=== PATIENT | male | born 1965 | race Caucasian/White ===

== ENCOUNTER 2017-07-28 10:11 | Emergency (ER) | payer OTHER ==
[~2017-07-28] VITALS: Ht 172.7 cm; Wt 81.3 kg
[~2017-07-28 10:11] MED LIST: GABA300C5 PO; IBUP800T23 PO; METH500T3 PO; Z.0.NO CURRENT MEDS
[2017-07-28 10:31] VITALS: BP 123/76; PULSE 68; RESP 16; TEMP 98.4; O2SAT 98
--- NOTE | 2017-07-28 11:10 | PD ---
HPI Chief Complaint: Pain: Acute or Chronic Time Seen by Provider: 10:46 Travel History International Travel<30 days: No Contact w/Intl Traveler<30days: No Traveled to known affect area: No History of Present Illness HPI 52-year-old male presents to the ED for evaluation of 710 left upper thigh pain. Onset this morning upon getting out of bed. Worsened by moving the leg, weightbearing. Patient can recall no acute injury or recent overuse. He denies fever, chills, nausea, vomiting, changes in bowel habits, numbness, tingling, weakness, limitations to range of motion of the extremity. No treatment attempt at home. PFSH Past Medical History Cardiac Catheterization: Yes Cardiovascular Problems: Yes Coronary Artery Disease: Yes Diabetes: No Patient Takes Glucophage: No Diminished Hearing: No Kidney Stones: Yes Neurologic: Yes (BRAIN SURGERY) Psychiatric: No Immunizations Current: No Past Surgical History Cardiac Surgery: Yes (September TO CORRECT A ANOMOLY) Coronary Artery Bypass Graft: Yes (CABG X 2-) Other Surgery: Yes ("brain surgery,20yrs ago,removed dermoid cyst from behind r.eye") Family History Family Myocardial Infarction: Yes Social History Alcohol Use: Yes (WINE ON OCCASION) Tobacco Use: No Substance Use: No Allergies-Medications (Allergen,Severity, Reaction): Coded Allergies: diatrizoate meglumine (Unverified Allergy, Severe, Respiratory Failure, 06/02) gadobenic acid (Unverified Allergy, Severe, Respiratory Failure, 07/28/17) gadodiamide (Unverified Allergy, Severe, Respiratory Failure, 07/28/17) gadoteridol (Unverified Allergy, Severe, Respiratory Failure, 07/28/17) iodixanol (Unverified Allergy, Severe, Respiratory Failure, 07/28/17) iohexol (Unverified Allergy, Severe, Respiratory Failure, 07/28/17) fentanyl (Unverified Adverse Reaction, Severe, "vomiting,dizzy, hallucinations", 07/28/17) Reported Meds & Prescriptions Reported Meds & Active Scripts Active Flexeril (Cyclobenzaprine HCl) 10 Mg Tab 10 Mg PO TID Naprosyn (Naproxen) 500 Mg Tab 500 Mg PO BID Physical Exam Narrative GENERAL: Well-nourished, well-developed white male in no acute distress. Patient. SKIN: Focused skin assessment warm/dry. HEAD: Normocephalic. EYES: No scleral icterus. No injection or drainage. NECK: Supple, trachea midline. No JVD or lymphadenopathy. CARDIOVASCULAR: Regular rate and rhythm without murmurs, gallops, or rubs. RESPIRATORY: Breath sounds equal bilaterally. No accessory muscle use. GASTROINTESTINAL: Abdomen soft, non-tender, nondistended. No palpable bulging of the groin. MUSCULOSKELETAL: No cyanosis, or edema. No tenderness to palpation along the body of the muscles of the left side. Pain in the leg elicited with resisted ROM. BACK: Nontender without obvious deformity. No CVA tenderness. Data Data Last Documented VS Vital Signs Date Time Temp Pulse Resp B/P (MAP) Pulse Ox O2 Delivery O2 Flow Rate FiO2 07/28/17 10:31 98.4 68 16 123/76 (92) 98 Orders Orders Ed Discharge Order (07/28/17 11:11) MDM Medical Decision Making Medical Screen Exam Complete: Yes Emergency Medical Condition: Yes Differential Diagnosis Muscle strain versus inguinal hernia versus femoral hernia versus other Narrative Course 52-year-old male presents to the ED for evaluation of 7/10 left upper thigh pain. Onset this morning upon getting out of bed. He denies fever, chills, nausea, vomiting, changes in bowel habits, numbness, tingling, weakness, limitations to range of motion of the extremity. Vitals reviewed. Physical exam reveals tenderness to palpation of the muscles of the anterior thigh, worsened by resisted ROM. We'll trial a short course of anti-inflammatories and muscle relaxants. Patient is instructed to follow up with the primary care should symptoms persist. He is stable and discharged home. Diagnosis Primary Impression: Muscle strain of left thigh Qualified Codes: S76.912A - Strain of unspecified muscles, fascia and tendons at thigh level, left thigh, initial encounter Referrals: Primary Care Physician Patient Instructions: General Instructions, Muscle Strain (ED) Additional Instructions: Rest, ice, elevate the extremity. Apply ice no longer than 10-15 minutes per hour a few times a day. 500 mg naproxen twice a day as prescribed to reduce inflammation. Muscle relaxants as prescribed, to 3 times a day. To not drive or taking muscle relaxants. Return to normal, gentle activity as tolerated. No running, jumping activities for the next few weeks. Follow up with the primary care provider. Return to the ED for any urgent or emergent medical condition. Med/Other Pt SpecificInfo: Prescription(s) given Scripts Cyclobenzaprine (Flexeril) 10 Mg Tab 10 MG PO TID for Muscle Spasm, #15 TAB 0 Refills Prov: Mindi Ventura MD 07/28/17 Naproxen (Naprosyn) 500 Mg Tab 500 MG PO BID, #10 TAB 0 Refills Prov: Mindi Ventura MD 07/28/17 Disposition: 01 DISCHARGE HOME Condition: Stable Indigo Cordova Jul 28, 2017 11:10
[2017-07-28] MEDS ORDERED: NAPR500 PO (11:11)
[2017-07-28] MEDS ORDERED: CYCL10TA PO (11:11)
== END 2017-07-28 11:16 | disposition home or self-care (01) ==
LOC: PHEFT 10:11
DX: S76.912A Strain of unspecified muscles, fascia and tendons at thigh level, left thigh, initial encounter (principal); Z86.79 Personal history of other diseases of the circulatory system; Z87.442 Personal history of urinary calculi; Z86.69 Personal history of other diseases of the nervous system and sense organs; X58.XXXA Exposure to other specified factors, initial encounter
CPT/HCPCS: 99283

== ENCOUNTER 2017-07-30 12:09 | Emergency (ER) | payer OTHER ==
[~2017-07-30] VITALS: Ht 152.4 cm; Wt 80.7 kg
[~2017-07-30 12:09] MED LIST changes: +CYCL10TA PO; -GABA300C5 PO; -IBUP800T23 PO; -METH500T3 PO; +NAPR500 PO; -Z.0.NO CURRENT MEDS
[2017-07-30 12:17] VITALS: BP 139/91; PULSE 79; RESP 16; TEMP 97.6; O2SAT 99
[2017-07-30] MEDS ORDERED: MORPHINE SULFATE 4 MG/ML INJ IV PUSH ONE (12:45)
[2017-07-30] MEDS ORDERED: SODIUM CHLORID 0.9% 500 ML INJ 500 ML IV ONE (12:45)
--- NOTE | 2017-07-30 13:15 | PD ---
HPI Chief Complaint: Musculoskeletal Complaint Time Seen by Provider: 12:22 Travel History International Travel<30 days: No Contact w/Intl Traveler<30days: No Traveled to known affect area: No History of Present Illness HPI Patient is a 52-year-old male who comes in complaining of left thigh pain. He says he has had the pain since Friday. He was seen here Friday, told he had a muscle strain. He says he is tried taking the naproxen and Flexeril without relief of his symptoms. He says the pain seems to be getting worse, and now travels to his knee, so he came back in. He denies any injury. He says he has not seen any swelling or discoloration of his skin. He denies any back pain or urinary symptoms. Nothing seems to relieve his pain or make it worse. He denies chest pain or shortness of breath. Severity is mild to moderate. PFSH Past Medical History Cardiac Catheterization: Yes Cardiovascular Problems: Yes Coronary Artery Disease: Yes Diabetes: No Diminished Hearing: No Kidney Stones: Yes Neurologic: Yes (BRAIN SURGERY) Psychiatric: No Immunizations Current: No Influenza Vaccination: No ?: Not Past Surgical History Cardiac Surgery: Yes (September TO CORRECT A ANOMOLY) Coronary Artery Bypass Graft: Yes (CABG X 2-) Other Surgery: Yes ("brain surgery,20yrs ago,removed dermoid cyst from behind r.eye") Family History Family Myocardial Infarction: Yes Social History Alcohol Use: Yes (WINE ON OCCASION) Tobacco Use: No Substance Use: No Allergies-Medications (Allergen,Severity, Reaction): Coded Allergies: diatrizoate meglumine (Unverified Allergy, Severe, Respiratory Failure, ) gadobenic acid (Unverified Allergy, Severe, Respiratory Failure, 07/30/17) gadodiamide (Unverified Allergy, Severe, Respiratory Failure, 07/30/17) gadoteridol (Unverified Allergy, Severe, Respiratory Failure, 07/30/17) iodixanol (Unverified Allergy, Severe, Respiratory Failure, 07/30/17) iohexol (Unverified Allergy, Severe, Respiratory Failure, 07/30/17) fentanyl (Unverified Adverse Reaction, Severe, "vomiting,dizzy, hallucinations", 2/14/18) Reported Meds & Prescriptions Reported Meds & Active Scripts Active Flexeril (Cyclobenzaprine HCl) 10 Mg Tab 10 Mg PO TID Naprosyn (Naproxen) 500 Mg Tab 500 Mg PO BID Review of Systems Except as stated in HPI: all other systems reviewed are Neg General / Constitutional: No: Fever, Chills HENT: No: Headaches, Lightheadedness Cardiovascular: No: Chest Pain or Discomfort Respiratory: No: Shortness of Breath Gastrointestinal: No: Nausea, Vomiting Genitourinary: No: Dysuria, Flank Pain Musculoskeletal: Positive: Myalgias, No: Edema Skin: No Rash, No Change in Pigmentation Neurologic: No: Weakness, Dizziness Physical Exam Narrative GENERAL: Awake and alert, no acute distress. SKIN: Focused skin assessment warm/dry. No wounds or signs of infection. HEAD: Atraumatic. Normocephalic. EYES: Pupils equal and round. No scleral icterus. ENT: Mucous membranes pink and moist. NECK: Trachea midline. No JVD. CARDIOVASCULAR: Regular rate and rhythm. No murmur appreciated. RESPIRATORY: No accessory muscle use. Clear to auscultation. Breath sounds equal bilaterally. GASTROINTESTINAL: Abdomen soft, non-tender, nondistended. No groin swelling or evidence of hernia. MUSCULOSKELETAL: No obvious deformities. No clubbing. No cyanosis. No edema. No tenderness to the thoracic or lumbar spine. No tenderness to the sacroiliac area. Some pain with internal rotation of the left hip. Pedal pulses intact. Joint is not warm or red. NEUROLOGICAL: Awake and alert. No obvious cranial nerve deficits. Motor grossly within normal limits. Normal speech. PSYCHIATRIC: Appropriate mood and affect; insight and judgment normal. Data Data Last Documented VS Vital Signs Date Time Temp Pulse Resp B/P (MAP) Pulse Ox O2 Delivery O2 Flow Rate FiO2 07/30/17 12:17 97.6 79 16 139/91 (107) 99 Orders Orders Iv Access Insert/Monitor (07/30/17 12:40) Complete Blood Count With Diff (07/30/17 12:40) Comprehensive Metabolic Panel (07/30/17 12:40) Urinalysis - C+S If Indicated (07/30/17 12:40) Us Leg Venous Doppler (07/30/17 ) Creatine Kinase (Cpk) (07/30/17 12:40) Ct Lumb Spine W/O Contrast (07/30/17 ) Morphine Inj (Morphine Inj) (07/30/17 12:45) Sodium Chlorid 0.9% 500 Ml Inj (Ns 500 M (07/30/17 12:45) Ct Pelvis W/O Iv Contrast (07/30/17 ) Labs Laboratory Tests Test 07/30/17 13:05 07/30/17 14:25 White Blood Count 5.3 TH/MM3 Red Blood Count 5.40 MIL/MM3 Hemoglobin 16.3 GM/DL Hematocrit 48.5 % Mean Corpuscular Volume 89.8 FL Mean Corpuscular Hemoglobin 30.1 PG Mean Corpuscular Hemoglobin Concent 33.5 % Red Cell Distribution Width 12.7 % Platelet Count 255 TH/MM3 Mean Platelet Volume 7.9 FL CBC Comment AUTO DIFF Differential Total Cells Counted 100 Neutrophils % (Manual) 66 % Band Neutrophils % 3 % Lymphocytes % 19 % Monocytes % 3 % Eosinophils % 6 % Basophils % 3 % Neutrophils # (Manual) 3.7 TH/MM3 Differential Comment FINAL DIFF MANUAL Platelet Estimate NORMAL Platelet Morphology Comment NORMAL Hematology Comments Blood Urea Nitrogen 20 MG/DL Creatinine 1.00 MG/DL Random Glucose 87 MG/DL Total Protein 8.4 GM/DL Albumin 4.5 GM/DL Calcium Level 8.9 MG/DL Alkaline Phosphatase 70 U/L Aspartate Amino Transf (AST/SGOT) 18 U/L Alanine Aminotransferase (ALT/SGPT) 29 U/L Total Bilirubin 0.5 MG/DL Sodium Level 141 MEQ/L Potassium Level 3.7 MEQ/L Chloride Level 107 MEQ/L Carbon Dioxide Level 29.2 MEQ/L Anion Gap 5 MEQ/L Estimat Glomerular Filtration Rate 78 ML/MIN Total Creatine Kinase 93 U/L Urine Color YELLOW Urine Turbidity CLEAR Urine pH 5.5 Urine Specific Claude 1.021 Urine Protein NEG mg/dL Urine Glucose (UA) NEG mg/dL Urine Ketones NEG mg/dL Urine Occult Blood TRACE Urine Nitrite NEG Urine Bilirubin NEG Urine Leukocyte Esterase NEG Urine Squamous Epithelial Cells 0-5 /hpf Microscopic Urinalysis Comment CULT NOT INDICATED MDM Medical Decision Making Medical Screen Exam Complete: Yes Emergency Medical Condition: Yes Medical Record Reviewed: Yes Differential Diagnosis Muscle strain versus DVT versus hernia versus sciatica Narrative Course Patient is a 52-year-old male who comes in complaining of left leg pain. This is his second visit for this pain. Exam shows pain with movement of his left hip, no other acute abnormalities. IV established, labs sent. Labs show evidence of slight dehydration, no other acute abnormalities. Patient given IV fluids, small dose of morphine. Ultrasound of the left leg performed shows no evidence of DVT. CT of his pelvis reveals a small left inguinal hernia containing fat. CT of the lumbar spine shows compression at the L3 left-sided nerve root. Last [address] 07/30/17 0000 Signed Impressions: Service Date/Time: Sunday, July 30, 2017 13:51 - CONCLUSION: Left inguinal hernia containing only fat. MRI would be more sensitive exam is subtle musculoskeletal injury Leon Guillen MD FACR Lumbar Spine CT 07/30/17 0000 Signed Impressions: Service Date/Time: Sunday, July 30, 2017 13:51 - CONCLUSION: 1. 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 Numbering reflects this configuration with the sacralized L5 vertebral body labeled #5. 2. Left posterior disc protrusion with a small extruded fragment encroaches on the left lateral recess and osteotomy of the left neural foramina. This appears to abut and compromised left L3 nerve root. This may explain current clinical symptoms. 3. Otherwise, degenerative disc disease most severe at L1-2 with loss of disc height, vacuum disc phenomenon and minimal grade 1 retrolisthesis of L1 on 2. No canal or foraminal stenosis. Spinal canal and neural foramina are patent at all remaining lumbar levels. Levi Franklin MD Lower Extremity Ultrasound 07/30/17 0000 Signed Impressions: Service Date/Time: Sunday, July 30, 2017 13:11 - CONCLUSION: 1. No sonographic evidence for lower extremity DVT. Peterson Self MD Patient informed of these results. He will be discharged with a prescription for prednisone as well as pain medicine. He is advised to follow-up with his primary care doctor and either orthopedics or neurosurgeon for further management. Advised to return anytime for any worsening symptoms. Diagnosis Primary Impression: Hip pain Qualified Codes: M25.552 - Pain in left hip Additional Impression: Nerve compression Patient Instructions: General Instructions, Lumbar Radiculopathy (ED) Additional Instructions: Follow-up with your doctor. Complete the course of steroids. Take pain medicine as needed. Return to the emergency department as needed for any worsening symptoms. Scripts Gabapentin (Gabapentin) 300 Mg Cap 300 MG PO BID, #30 CAP 0 Refills Prov: Patrica Sellers MD 07/30/17 Hydrocodone-Acetaminophen ([place]) 5 Mg-325 Mg Tab 1 TAB PO Q6H Y for PAIN, #15 TAB 0 Refills Prov: Patrica Sellers MD 07/30/17 Methylprednisolone Dosepak (Medrol Dosepak) 4 Mg Dspk 4 MG PO DIRECTED, #1 DSPK 0 Refills Per Pharmacist direction Prov: Patrica Sellers MD 07/30/17 Disposition: 01 DISCHARGE HOME Condition: Stable Patrica Sellers MD Jul 30, 2017 13:15
[2017-07-30 13:20] LABS: HEMATOCRIT 48.5 % (39.0-51.0); HEMOGLOBIN 16.3 GM/DL (13.0-17.0); MEAN CELL VOLUME 89.8 FL (80.0-100.0); MEAN CORPUSCULAR HEMOGLOBIN 30.1 PG (27.0-34.0); MEAN CORPUSCULAR HGB CONC 33.5 % (32.0-36.0); MEAN PLATELET VOLUME 7.9 FL (7.0-11.0); PLATELET COUNT 255 TH/MM3 (150-450); RED CELL DISTRIBUTION WIDTH 12.7 % (11.6-17.2); WHITE BLOOD COUNT 5.3 TH/MM3 (4.0-11.0)
[2017-07-30 13:28] LABS: CHLORIDE 107 MEQ/L (98-107); SODIUM (NA) 141 MEQ/L (136-145)
[2017-07-30 13:33] LABS: ALBUMIN 4.5 GM/DL (3.4-5.0); BICARBONATE 29.2 MEQ/L (21.0-32.0); CALCIUM 8.9 MG/DL (8.5-10.1)
[2017-07-30 13:34] LABS: BLOOD UREA NITROGEN 20 MG/DL (7-18); GLUCOSE,RANDOM 87 MG/DL (74-106)
--- NOTE | 2017-07-30 13:35 | RADRPT ---
EXAM DATE/TIME: 07/30/2017 13:11 [facility] COMPARISON: No previous studies available for comparison. INDICATIONS : Left knee pain. MEDICAL HISTORY : Kidney stones. CAD. SURGICAL HISTORY : Cardiac catheterization. CABG. Brain surgery. ENCOUNTER: Initial ACUITY: 2 day PAIN SCORE: 7/10 LOCATION: Left leg. TECHNIQUE: Venous ultrasound of the leg was performed from the inguinal ligament to the proximal calf. Real-jf e, color Doppler and spectral tracing, compression and augmentation techniques were used. FINDINGS: There is normal compressibility of the deep venous system from the inguinal region to the proximal ca lf. No echogenic clot is seen in the lumen of the common femoral, femoral, popliteal, and posterior tibial veins. There is a normal response of the venous system to proximal and distal augmentation an d respiration. CONCLUSION: 1. No sonographic evidence for lower extremity DVT. Peterson Self MD on July 30, 2017 at 13:32 Board Certified Radiologist. This report was verified electronically.
[2017-07-30 13:36] LABS: ALT (GPT) 29 U/L (12-78)
[2017-07-30 13:37] LABS: AST (GOT) 18 U/L (15-37); GLOMERULAR FILTRATION RATE 78 ML/MIN (>89)
[2017-07-30 13:38] LABS: TOTAL BILIRUBIN ADULT 0.5 MG/DL (0.2-1.0); TOTAL PROTEIN 8.4 GM/DL (6.4-8.2)
[2017-07-30 13:39] LABS: ALKALINE PHOSPHATASE 70 U/L (45-117)
--- NOTE | 2017-07-30 14:16 | RADRPT ---
EXAM DATE/TIME: 07/30/2017 13:51 [facility] COMPARISON: No previous studies available for comparison. INDICATIONS : Left groin pain. ORAL CONTRAST: No oral contrast ingested. RADIATION DOSE: 10.30 CTDIvol (mGy) MEDICAL HISTORY : Renal calculi. Seizures. SURGICAL HISTORY : Craniotomy. CABGVP shunt. ENCOUNTER: Initial ACUITY: 4 - 6 days PAIN SCALE: 8/10 LOCATION: Left pelvis TECHNIQUE: Volumetric scanning of the pelvis was performed. Using automated exposure control and adjustment of the mA and/or kV according to patient size, radiation dose was kept as low as reasonably achievable t o obtain optimal diagnostic quality images. DICOM format image data is available electronically for review and comparison. FINDINGS: There is left inguinal hernia containing only fat. Pelvic contents are unremarkable. There is no hematoma.. There is no adenopathy. Review of bone windows is reveals no abnormality. CONCLUSION: Left inguinal hernia containing only fat. MRI would be more sensitive exam is subtle musculoskeletal injury Leon Guillen MD FACR on July 30, 2017 at 14:11 Board Certified Radiologist. This report was verified electronically.
[2017-07-30 14:19] LABS: BANDS 3 % (0-6); BASOPHILS 3 % (0-2); LYMPHOCYTES 19 % (9-44); MONOCYTES 3 % (0-8); NEUTROPHIL # MANUAL DIFF 3.7 TH/MM3 (1.8-7.7); POLYS (SEG NEUTROPHILS) 66 % (16-70)
[2017-07-30 14:39] LABS: BILIRUBIN, URINE NEG (NEG); BLOOD, URINE TRACE (NEG); GLUCOSE,URINE NEG (NEG); KETONE, URINE NEG (NEG); NITRITE,URINE NEG (NEG); PH, URINE 5.5 (5.0-8.5); URINE LEUKOCYTE ESTERASE NEG (NEG)
[2017-07-30 14:47] LABS: SQUAMOUS EPITHELIAL CELL URINE 0-5 /hpf (0-5); URINE COLOR YELLOW (YELLW/STRAW)
--- NOTE | 2017-07-30 14:55 | RADRPT ---
EXAM DATE/TIME: 07/30/2017 13:51 [facility] COMPARISON: CT ABDOMEN & PELVIS W/O CONTRAST, February 11, 2013, 6:09. CT LUMBAR SPINE W/O CONTRAST, February 15, 2016, 13:43. INDICATIONS : Left upper leg pain. RADIATION DOSE: 35.50 CTDIvol (mGy) MEDICAL HISTORY : Renal calculi. Seizures. Cardiovascular disease SURGICAL HISTORY : CABG Craniotomy.SMOKE JUMPER shunt. ENCOUNTER: Initial ACUITY: 4 - 6 days PAIN SCALE: 8/10 LOCATION: Left low back TECHNIQUE: Volumetric scanning of the lumbar spine was performed. Multiplanar reconstructions in the sagittal, coronal and oblique axial planes were performed. Using automated exposure control and adjustment of the mA and/or kV according to patient size, radiation dose was kept as low as reasonably achievable t o obtain optimal diagnostic quality images. DICOM format image data is available electronically for review and comparison. FINDINGS: Of note, there are 4 non-rib lumbar-type vertebral bodies with almost complete sacralization of the L 5 vertebrae. The sacralized vertebrae will still be labeled L5 for the purposes of this study. Sagittal and coronal reconstructions show degenerative disc disease most prominent at L1 to with loss of disc height, vacuum disc phenomenon grade 1 retrolisthesis of L1 on 2 and marginal spurs are note d directed anteriorly. The right heights are maintained at all remaining levels. Far lateral sagittal images show a left posterior disc at L3-4 which abuts up against the left L3 nerve root. T12-L1: The thecal sac has a normal diameter. No evidence of disc bulge or protrusion. The neural foramina are patent bilaterally. L1-L2: Degenerative disc disease with vacuum disc phenomenon and predominately anteriorly directed spurs. Sp inal canal and neural foramina are patent. L2-L3: The thecal sac has a normal diameter. No evidence of disc bulge or protrusion. The neural foramina are patent bilaterally. L3-L4: Left posterior disc with a small extruded component encroaches on the lateral recess and left neural foramen and probably compromises the left L3 nerve root. Spinal canal and right neural foramina are a dequate. L4-L5: Sacralization of L5. Spinal canal and neural foramina are patent. L5-S1: The thecal sac has a normal diameter. No evidence of disc bulge or protrusion. The neural foramina are patent bilaterally. CONCLUSION: 1. 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 Numberi ng reflects this configuration with the sacralized L5 vertebral body labeled #5. 2. Left posterior disc protrusion with a small extruded fragment encroaches on the left lateral reces s and osteotomy of the left neural foramina. This appears to abut and compromised left L3 nerve root. This may explain current clinical symptoms. 3. Otherwise, degenerative disc disease most severe at L1-2 with loss of disc height, vacuum disc phe nomenon and minimal grade 1 retrolisthesis of L1 on 2. No canal or foraminal stenosis. Spinal canal a nd neural foramina are patent at all remaining lumbar levels. Levi Franklin MD on July 30, 2017 at 14:36 Board Certified Radiologist. This report was verified electronically.
[2017-07-30] MEDS ORDERED: GABA300C5 PO (15:10)
[2017-07-30] MEDS ORDERED: NORC5TAB PO (15:10)
[2017-07-30] MEDS ORDERED: MEDR4PAK PO (15:10)
[2017-07-30 15:26] VITALS: RESP 18
== END 2017-07-30 15:26 | disposition home or self-care (01) ==
LOC: PHEFT 12:09
DX: M25.552 Pain in left hip (principal); G58.9 Mononeuropathy, unspecified; I25.10 Atherosclerotic heart disease of native coronary artery without angina pectoris; Z95.1 Presence of aortocoronary bypass graft; Z88.8 Allergy status to other drugs, medicaments and biological substances
CPT/HCPCS: 72131; 72192; 80053; 81001; 82550; 85007; 85027; 93971; 96361; 96374; 99285; J2270; J7040